=== PATIENT | female | born 1990 | race Caucasian/White ===

== ENCOUNTER 2024-12-28 13:46 | Emergency (ER) | payer MEDICAID, SELFPAY ==
[2024-12-28 13:55] VITALS: BP 118/81; PULSE 79; RESP 18; TEMP 37.1; O2SAT 98; BMI 35.3
--- NOTE | 2024-12-28 14:39 | ED_ITS ---
HPI - General Adult General Chief complaint: General Medical Stated complaint: Abscess on tonsils Time Seen by Provider: 12/28/24 17:04 Source: patient Mode of arrival: ambulatory Limitations: no limitations History of Present Illness ED Provider: MARIE HEBERT PA-C HPI narrative: 34 year old female with pmhx significant for recurring strep throat presents to the ED today from urgent care for evaluation of sore throat x3 days. Reports bilateral throat pain, worse on the left side. Admits to associated odynophagia. No dysphagia. Able to tolerate PO intake and saliva. Denies fever, chills, jaw or neck pain, headache. Reports hx of strep throat 1 mo ago, treated appropriately with resolution of symptoms until 3 days ago. She did not switch her tooth brush. She was evaluated at today and sent to the ED for further evaluation. Related Data Previous Rx's ?Medication ?Instructions ?Recorded benzocaine 15 mg-menthol 2.6 mg 1 diane mucous membrane Q2-4H PRN 12/28/24 lozenges (Cepacol Sore Throat sore throat #16 ea (benzocaine-menthol)) penicillin V potassium 500 mg 500 mg PO BID 10 days #2 0 tabs 12/28/24 tablet prednisone 20 mg tablet 20 mg PO DAILY 5 days #5 tab s 12/28/24 Allergies Allergy/AdvReac Type Severity Reaction Status Date / Time No Known Allergies Allergy Verified 12/28/24 13:59 Review of Systems 2 Review of Systems: Constitutional: No fever, chills, fatigue, night sweats, weight changes ENT/Mouth: No ear pain, hearing loss, nasal congestion, sinus pain, rhinorrhea, +sore throat Eyes: No eye pain, swelling, redness, vision changes, discharge Cardio: No chest pain, palpitations, URIBE, orthopnea, peripheral edema Pulm: No SOB, cough, sputum, wheezing, dyspnea, hemoptysis GI: No nausea, vomiting, hematemesis, abdominal pain, diarrhea, constipation, hematochezia, melena : No irregular bleeding, dysuria, frequency, urgency, hesitancy, hematuria, flank pain, urinary flow changes, urinary incontinence or retention MSK: No back pain, neck pain, joint pain, myalgias Skin: No lesions, rashes Neuro: No weakness, numbness, paresthesias, LOC, dizziness, headache Psych: No anxiety/panic, depression, SI/HI, AH/VH All other systems reviewed and are negative. [facility] Past Medical History Attestation statement: The following information was validated with the patient. Source: old records reviewed and nursing notes reviewed Social History Social History Do you have a plan to hurt others: No Plan Physical Exam ED Vital Signs: Vital Signs - 24 hr 12/28/24 13:55 12/28/24 17:15 Temperature 98.7 F 98.7 F Pulse Rate 79 79 Respiratory Rate 18 18 Blood Pressure 118/81 118/81 Pulse Oximetry 98 98 Oxygen Delivery Method Room Air BMI result Body Mass Index 35.3 vital signs stable, afebrile, not hypoxic General: Well appearing, in no acute distress. Skin: Warm, dry, intact. No rashes or lesions. Head: Normocephalic, atraumatic. EENT: Hearing is intact b/l. Conjunctiva clear. PERRLA. EOM intact. Moist mucous membranes. Posterior oropharynx erythematous with bilateral tonsillar hypertrophy no tonsillar exudates, no peritonsillar masses, uvula midline, no muffled voice, controlling secretions and speaking in complete sentences. Neck: Supple without LAD Cardiac: Chest wall symmetric. RRR Lungs: Normal respiratory effort without accessory muscle use. CTA bilaterally. Abdomen: Soft, non-tender, non-distended. No rebound tenderness or guarding. Positive BS x4. Back: No midline spinous or paraspinal tenderness. No step off deformity. Ext: Upper and lower extremities atraumatic, without tenderness, deformity, swelling or erythema Neuro: AOx3. Normal speech. Ambulating with steady gait. Course Course Course Narrative: 12/28/24 [id number] FIDELINA Anderson This is a Rapid Medical Examination (RME) performed by Murphy Hebert PA-C in triage. Full HPI, ROS, assessment and treatment plan per primary provider in the Main ED. Hx: 34 yo F hx of recurrent strep throat here w/ sore throat/ tonsillar swelling x3 days. able to tolerate PO at home. had strep throat a few weeks ago and completed abx for this. PE/vitals: Speaking complete sentences. Uvula midline. Bilateral tonsillar hypertrophy without exudates. Plan: Basic blood work, strep swab Reevaluation(s) Reevaluation #1: Patient tested positive for strep pharyngitis. She does have a white count of 14.8, no left shift. Chemistry without acute electrolyte abnormality requiring intervention. No AJITH. Liver function at baseline. > exam is not concerning for [employer]. Her uvula is midline. She has no muffled voice. There is no evidence of abscess on my exam. Patient has strep throat and will be treated accordingly. Penicillin VK sent to pharmacy. Prednisone sent for inflammation and Cepacol throat lozenges sent for throat pain. Patient has remained stable throughout ED visit today. Discussed worrisome signs and symptoms and when to return to the ED. All questions answered at this time. Patient is agreeable with disposition and stable for discharge. Medical Decision Making Medical Decision Making [facility] Narrative: 34 year old female with pmhx significant for recurring strep throat presents to the ED today from urgent care for evaluation of sore throat x3 days. Vitals are stable, afebrile. She is well-appearing. No respiratory distress. On exam, Posterior oropharynx erythematous with bilateral tonsillar hypertrophy no tonsillar exudates, no peritonsillar masses, uvula midline, no muffled voice, controlling secretions and speaking in complete sentences. Airways patent, lungs are clear. Differential diagnosis includes strep throat. Lower suspicion for BR[employer]OM [employer]ER. Unlikely retropharyngeal abscess, epiglottitis. Plan for screening labs, strep swab, re-evaluation. Differential Diagnosis Differential Diagnoses: The differential diagnosis associated with the presentation includes As above Admission/Observation Not indicated Lab Data [facility] Lab Attestation statement: I reviewed the patient's lab results. As above 12/28/24 16:11 12/28/24 16:11 Labs: Lab Results 12/28/24 Range/Units 16:11 WBC 14.8 H (4.8-10.8) X10*3/uL RBC 4.48 (4.20-5.50) X10*6/uL Hgb 12.7 (12.0-16.0) g/dl Hct 37.8 (37.0-47.0) % MCV 84.4 (80.0-98.0) fL MCH 28.3 (27.0-33.0) pg MCHC 33.6 (31.0-35.0) g/dl RDW 12.8 (11.0-16.0) % Plt Count 298 (160-400) X10*3/uL MPV 8.9 L (9.4-12.3) fL Immature Gran % (Auto) 0.3 (0.0-0.4) % Neut % (Auto) 69.1 (45-73) % Lymph % (Auto) 19.8 L (20-40) % Hutchinson % (Auto) 10.0 (2-11) % Eos % (Auto) 0.5 (0-4) % Baso % (Auto) 0.3 (0-2) % Lymph # (Auto) 2.9 (1.2-4.9) X10*3/uL Hutchinson # (Auto) 1.5 H (0.1-1.2) X10*3/uL Eos # (Auto) 0.1 (0.0-0.4) X10*3/uL Baso # (Auto) 0.0 (0.0-0.2) X10*3/uL Abs Immat Gran (auto) 0.05 H (0.00-0.03) X10*3/uL Absolute Neuts (auto) 10.2 H (2.0-8.3) x10*3/uL Absolute Nucleated RBC 0.000 (0.0-0.012) X10*3/uL Nucleated RBC % (auto) 0.0 (0.0-0.2) /100WBC Sodium 141 (135-145) mmol/L Potassium 3.9 (3.3-5.1) mmol/L Chloride 103 (96-108) mmol/L Carbon Dioxide 29 (22-29) mmol/L Anion Gap 13 (12-20) BUN 6 L (9-16) mg/dL Creatinine 0.57 (0.5-1.4) mg/dL Estim Creat Clear Calc 142.8 Estimated GFR > 60 Random Glucose 98 (60-115) mg/dL Calcium 10.0 (8.4-10.2) mg/dL Total Bilirubin 0.5 (0.0-1.0) mg/dL AST 18 (5-31) U/L ALT 14 (0-31) U/L Alkaline Phosphatase 69 (39-117) U/L Total Protein 7.8 (6.5-8.0) g/dL Albumin 4.7 (3.5-5.0) g/dL S. pyogenes GrpA SHEILA Positive A (Negative) External Record Review External record reviewed: Inpatient record Prescription Management I considered prescription management with: Pain Medication, Antibiotic (Penicillin) and Other (Prednisone, Cepacol throat lozenges) Social Determinants Patient?s care significantly limited by Social Determinants of Health including: Other Social Determinant of Health Critical Care Time Critical Care Time Critical Care Time: No Discharge Plan Discharge Clinical Impression: Acute streptococcal pharyngitis Patient Disposition: Home, Self-Care Instructions: Pharyngitis (ED), Strep Throat (ED) Additional Instructions: You were seen in the ED today for evaluation of sore throat. You tested positive for strep throat. Penicillin VK is an antibiotic that has been sent to your pharmacy. Take this twice daily for the next 10 days to treat strep throat. Do not stop taking these antibiotics early or miss any doses as this may cause infection to return or worsen. Prednisone has been sent to your pharmacy. take this as prescribed daily for inflammation. Cepacol throat lozenges have been sent to your pharmacy to help with throat pain. You may also purchase [id number] chloraseptic spray to numb your throat. Take Tylenol and ibuprofen as needed for body aches or fevers. Make sure to change your toothbrush as this contains bacteria. Strep throat is contagious. If anyone else in your household is exhibiting symptoms, please advise them to come to the ED, urgent care, or to see their primary care provider. Follow up with your primary care provider this week. Return to the Emergency Department if you experience worsening or uncontrolled pain, tongue swelling, difficulty swallowing, change in your voice, difficulty breathing, fevers 100.4?F or greater, recurrent vomiting, development of a rash, or any other concerning symptoms. In the case of emergency, call 911.? Prescriptions: New penicillin V potassium 500 mg tablet 500 mg PO BID 10 Days Qty: 20 0RF prednisone 20 mg tablet 20 mg PO DAILY 5 Days Qty: 5 0RF Cepacol Sore Throat (kat-men) 15-2.6 mg lozenge 1 diane mucous membrane Q2-4H PRN (Reason: sore throat) Qty: 16 0RF Referrals: Physician,Unknown J [Primary Care Provider, Medical] Stand Alone Forms: Work/School Release Interventions: ED Discharge Assessment Last Done: 12/28/24 17:15 Print Language: Mongolian
[2024-12-28 16:15] LABS: MANUAL DIFF FLAG NO
[2024-12-28 16:23] LABS: Basophils Percent Auto 0.3 % (0-2); Eosinophils Absolute Auto 0.1 X10*3/uL (0.0-0.4); Eosinophils Percent Auto 0.5 % (0-4); Hematocrit 37.8 % (37.0-47.0); Hemoglobin 12.7 g/dl (12.0-16.0); Imm Gran Abs Auto 0.05 X10*3/uL (0.00-0.03); Imm Gran Pct Auto 0.3 % (0.0-0.4); Lymphocytes Absolute Auto 2.9 X10*3/uL (1.2-4.9); Lymphocytes Percent Auto 19.8 % (20-40); Mean Corpuscular HGB Conc 33.6 g/dl (31.0-35.0); Mean Corpuscular Hemoglobin 28.3 pg (27.0-33.0); Mean Corpuscular Volume 84.4 fL (80.0-98.0); Mean Platelet Volume 8.9 fL (9.4-12.3); Monocytes Absolute Auto 1.5 X10*3/uL (0.1-1.2); Neutrophils Absolute Auto 10.2 x10*3/uL (2.0-8.3); Neutrophils Percent Auto 69.1 % (45-73); Platelet Count 298 X10*3/uL (160-400); Red Blood Count 4.48 X10*6/uL (4.20-5.50); Red Cell Distribution Width 12.8 % (11.0-16.0); White Blood Count 14.8 X10*3/uL (4.8-10.8)
[2024-12-28 16:30] LABS: Alanine Aminotransferase 14 U/L (0-31); Albumin Level 4.7 g/dL (3.5-5.0); Alkaline Phosphatase 69 U/L (39-117); Anion Gap 13 (12-20); Aspartate Amino Transferase 18 U/L (5-31); Bilirubin Total 0.5 mg/dL (0.0-1.0); Blood Urea Nitrogen 6 mg/dL (9-16); Carbon Dioxide 29 mmol/L (22-29); Chloride 103 mmol/L (96-108); Creatinine Clr Calc Pharmacy 142.8; Estimated Glomerular Filt Rate > 60; Glucose Random 98 mg/dL (60-115); Potassium 3.9 mmol/L (3.3-5.1); Sodium 141 mmol/L (135-145); Total Protein 7.8 g/dL (6.5-8.0)
[2024-12-28 16:32] LABS: IDNOW Serial# 55D5AD1C; Strep A Nucleic Acid Positive (Negative)
[2024-12-28 17:15] VITALS: BP 118/81; PULSE 79; RESP 18; TEMP 37.1; O2SAT 98
== END 2024-12-28 17:32 | disposition home or self-care (01) ==
PROVIDERS: Physician Assistant Medical; Emergency Provider Emergency Medicine
DX: J02.0 Streptococcal pharyngitis (principal); Z79.899 Other long term (current) drug therapy
CPT/HCPCS: 80053; 85025; 87651; 99282; 99283